=== PATIENT | male | born 1955 | race Caucasian/White ===

== ENCOUNTER 2017-11-25 07:53 | Day surgery (SDC) | payer OTHER ==
[2017-11-24 14:13] VITALS: BMI 25.0
[2017-11-25] MEDS ORDERED: Dextrose 50% Abboject 50 ML SYRINGE ONE (08:17)
[2017-11-25] MEDS ORDERED: Oxymetazoline HCl 0.05% ( 15 ML ) ONE ×2 (08:35→09:50)
[2017-11-25] MEDS ORDERED: Bacitracin Zinc Ointment 30 gm TUBE ONE (09:50)
[2017-11-25] MEDS ORDERED: Lidocaine 1% w/Epinephrine 1:200K 30 ML VIAL ONE (09:50)
[2017-11-25] MEDS ORDERED: Famotidine/PF 20 mg/2ml Vial ONE (09:56)
[2017-11-25] MEDS ORDERED: Ondansetron HCl/PF 4 MG/2 ML Vial ONE ×2 (09:56→16:48)
[2017-11-25] MEDS ORDERED: Fentanyl 250 MCG/5 ML VIAL ONE (09:56)
[2017-11-25] MEDS ORDERED: Lidocaine 1% PF 5 ML VIAL ONE (16:48)
[2017-11-25] MEDS ORDERED: Dexamethasone 20 MG/5 ML VIAL ONE (16:48)
[2017-11-25] MEDS ORDERED: Propofol 200 MG/20 ML VIAL ONE (16:48)
[2017-11-25] MEDS ORDERED: ePHEDrine/0.9% NaCl/PF SYRINGE 50 mg/10 ml ONE (16:48)
[2017-11-25] MEDS ORDERED: Succinylcholine Chloride 20 MG/ML 10 ml SYRINGE FS ONE (16:48)
--- NOTE | 2017-11-25 19:02 | EKG ---
Test Reason : PREOP Blood Pressure : / mmHG Vent. Rate : 066 BPM Atrial Rate : 066 BPM P-R Int : 176 ms QRS Dur : 092 ms QT Int : 448 ms P-R-T Axes : 061 001 029 degrees QTc Int : 469 ms Normal sinus rhythm Normal ECG No previous ECGs available Confirmed by DR. Sean YEBOAH ([id number]) on 11/25/2017 7:02:41 PM Referred By: Meron GUERRA Confirmed By:DR. Sean YEBOAH
--- NOTE | 2017-11-26 15:37 | OP ---
DATE OF PROCEDURE: 11/25/2017 PREOPERATIVE DIAGNOSES: 1. Chronic rhinosinusitis. 2. Bilateral nasal polyposis. 3. Bilateral inferior turbinate hypertrophy. 4. Nasal obstruction. POSTOPERATIVE DIAGNOSES: 1. Chronic rhinosinusitis. 2. Bilateral nasal polyposis. 3. Bilateral inferior turbinate hypertrophy. 4. Nasal obstruction. SURGEON: Malachi Mccloud M.D. ESTIMATED BLOOD LOSS: 0 mL COMPLICATIONS: None. ANESTHESIA: GETA. PROCEDURES: 1. Bilateral endoscopic sinus surgery, total ethmoidectomies. 2. Bilateral endoscopic sinus surgery, maxillary antrostomies with removal of tissue. 3. Bilateral endoscopic sinus surgery, frontal sinusotomies. 4. Bilateral endoscopic sinus surgery, sphenoidotomies. 5. Bilateral endoscopic resection, nasal polyposis and nasal polypectomy. 6. Bilateral inferior turbinate submucosal resection. DESCRIPTION OF PROCEDURE: The patient was taken to the operating room and placed supine on the table . General endotracheal anesthesia was obtained by the Anesthesia staff. Tube was secured in the lef t lower lip. The patient was then placed in the beach chair position. Afrin pledgets were placed in the nasal cavity as the patient was prepped and draped for standard nasal procedure. Following this , the Afrin pledgets were then removed and a 0 degree scope was advanced into the nasal cavity. 1% l idocaine with 1:100,000 epinephrine was injected into the inferior turbinates, middle turbinates, and lateral nasal wall as well as the nasal polyps that were visualized bilaterally. Following this, th e straight Blakesley forceps were used to remove the nasal polyps protruding into the nasal cavity we re sent for specimen. Following this, the microdebrider was used to further resect nasal polyps bila terally allowing visualization of the middle turbinates and lateral nasal wall structures. Following this, the middle turbinates which were atrophic were gently medialized with a [place] elevator. The u ncinate process was identified bilaterally and was anteriorly fractured with a ball-ended probe and s traight microdebrider was used to remove the uncinate process bilaterally. Following this, the natur al maxillary sinus ostia was identified using the 0 degree scope and the ball-ended probe and was the n widened using straight Blakesley forceps and the microdebrider bilaterally. Following this, the cu rved microdebrider was used to remove large mucoceles and polyps from within the maxillary sinus bila terally. Following this, the ethmoidal bulla was identified bilaterally and was punctured into the p osterior ethmoidal cells. The ethmoidal bulla side was punctured on its medial and inferior aspect a nd was removed using the microdebrider and upbiting Blakesley forceps. Following this, the grand tian el was identified bilaterally and was punctured into the posterior ethmoidal cells. Working from p osterior to anterior, the ethmoidal cells were opened in a mucosal-sparing technique. Following this , the sphenoid sinuses were approach through the ethmoidectomies. The superior turbinate was identif ied. Staying just medial and inferior to the attachment of the superior turbinate to the posterior n stacey wall. The sphenoidotomies were created bilaterally using the straight microdebrider. The sphen oid ostia were widened medially and inferiorly with the microdebrider bilaterally. Following this, a 45-degree scope and 40-degree microdebrider blade was used to further open the frontal recess and fr ontal sinus ostia bilaterally. Nasal polyps were removed from this area bilaterally as well. Follow ing this, the inferior turbinates were punctured on their anterior and inferior aspect and submucosal resection was performed in the anterior inferior portions of the inferior turbinates bilaterally. F ollowing this, the nasal cavity was irrigated. MeroPacks were placed bilaterally. The patient oly ated the procedure well.
== END 2017-11-25 13:25 | disposition home or self-care (01) ==
LOC: SDC 07:53
PROVIDERS: ATTEND Otolaryngology Plastic Surgery within the Head & Neck
PROC: 099T8ZZ Drainage of Left Frontal Sinus, Via Natural or Artificial Opening Endoscopic (ICD-10-PCS; principal; 2017-11-25)
PROC: 09TL0ZZ Resection of Nasal Turbinate, Open Approach (ICD-10-PCS; principal; 2017-11-25)
PROC: 09TU8ZZ Resection of Right Ethmoid Sinus, Via Natural or Artificial Opening Endoscopic (ICD-10-PCS; principal; 2017-11-25)
PROC: 099X8ZZ Drainage of Left Sphenoid Sinus, Via Natural or Artificial Opening Endoscopic (ICD-10-PCS; principal; 2017-11-25)
PROC: 09TR8ZZ Resection of Left Maxillary Sinus, Via Natural or Artificial Opening Endoscopic (ICD-10-PCS; principal; 2017-11-25)
PROC: 099S8ZZ Drainage of Right Frontal Sinus, Via Natural or Artificial Opening Endoscopic (ICD-10-PCS; principal; 2017-11-25)
PROC: 099W8ZZ Drainage of Right Sphenoid Sinus, Via Natural or Artificial Opening Endoscopic (ICD-10-PCS; principal; 2017-11-25)
PROC: 09TQ8ZZ Resection of Right Maxillary Sinus, Via Natural or Artificial Opening Endoscopic (ICD-10-PCS; principal; 2017-11-25)
PROC: 09TV8ZZ Resection of Left Ethmoid Sinus, Via Natural or Artificial Opening Endoscopic (ICD-10-PCS; principal; 2017-11-25)
PROC: 09BK8ZZ Excision of Nasal Mucosa and Soft Tissue, Via Natural or Artificial Opening Endoscopic (ICD-10-PCS; principal; 2017-11-25)
DX: J33.9 Nasal polyp, unspecified (principal); J32.4 Chronic pansinusitis; J34.3 Hypertrophy of nasal turbinates; E11.9 Type 2 diabetes mellitus without complications; I83.90 Asymptomatic varicose veins of unspecified lower extremity; I10 Essential (primary) hypertension; Z79.4 Long term (current) use of insulin; Z79.899 Other long term (current) drug therapy
CPT/HCPCS: 36416; 88304; 93005; 93010; J1100; J2001; J2405; J2704; J3010; S0028